=== PATIENT | female | born 1970 | race Caucasian/White ===

== ENCOUNTER 2017-06-24 12:57 | Emergency (ER) | payer OTHER ==
[2017-06-24 13:01] VITALS: BP 138/93
--- NOTE | 2017-06-24 13:08 | EDPHY ---
H & P Stated Complaint: Hit nose on wall last weekend. Con't to have reddness Time Seen by Provider: 06/24/17 13:07 HPI/ROS: HPI: This is a 47-year-old female who presents with Chief Complaint: Hit nose on wall last weekend. Con't to have reddness Location: Left side of nose Quality: Injury Duration: 6 days ago Signs and Symptoms: no fever, no nausea, no vomiting, no diarrhea, no urinary symptoms, no chest pain, no shortness of breath, no wheezing, no cough, no sore throat, no neck stiffness, no joint pain, no swollen glands, no ear pain, + rash Timing: Worsening Severity: [id number] Context: Patient presents with complaints of rash on her nose. She was in the computer [place] [employer] in turned her head and hit the wall crease with her left side of her nose. She cut it open. Garry put a Band-Aid on it. Date of injury was 06/18/2017. Approximately 3-4 days later she noticed a rash over the area of injury. Her co-worker came to work 2 days ago with a Band-Aid on her chin due to herpes simplex infection. Patient works in the ICU. No prior history of MRSA. Denies any itchiness/pain/ocular discharge. Modifying Factors: None Comment: ROS: see HPI Constitutional: no fever, no chills, no weight loss Eyes: No blurred vision Respiratory: No shortness of breath, no cough Cardiovascular: No chest pain, no palpitations Gastrointestinal: No nausea, no vomiting, no diarrhea, no hematemesis, no blood in stool Genitourinary: No dysuria, no blood in urine Extremities: No myalgias, no edema Neurologic: No weakness, no numbness Skin: No rashes, no petechiae Hematologic: No bruising, no bleeding MEDICAL/SURGICAL/SOCIAL HISTORY: Medical history: Generally healthy. Does not take any regular medications. Surgical history: Denies Social history: Works at [employer]. Family history noncontributory. CONSTITUTIONAL: Well-appearing adult white female, awake and alert, no obvious distress HEENT: Atraumatic and normocephalic. Nares patent without septal hematoma; left side of nose shows raise, mildly erythematous area 2 in area with whitish crusting. NECK: supple, no midline tenderness, flexion 45 degrees, extension 45 degrees, right and left lateral flexion 45 degrees. No meningismus. Cardiovascular: Normal S1/S2, regular rate, regular rhythm, without murmur rub or gallop. PULMONARY/CHEST: Symmetrical and nontender. no crepitus. Clear to auscultation bilaterally. Good air movement. No accessory muscle usage. ABDOMEN: Soft, nondistended, nontender, no ecchymosis. PELVIC: no pain with rocking; bilateral hips flexion 125 degrees, extension 30 degrees, with no pain internal rotation and no pain external rotation. BACK: No midline tenderness, no paraspinous spasm, deep tendon reflexes 2/2, no pain with straight leg raise, No foot drop. Achilles reflexes are equal bilaterally. Able to walk on heels and toes without difficulty. EXTREMITIES: 2/2 pulses, strength 5/5, DIP/PIP/MCP flexion/extension intact with good light touch sensation. no deformities, no clubbing, no cyanosis or edema. NEUROLOGICAL: no focal neuro deficits. GCS 15. Light touch sensation intact. SKIN: Warm and dry, no erythema. no rash. Good capillary refill. Source: Patient Exam Limitations: No limitations - Personal History LMP (Females 10-55): Post Menopausal Current Tetanus/Diphtheria Vaccine: Yes Current Tetanus Diphtheria and Acellular Pertussis (TDAP): Yes - Medical/Surgical History Hx Asthma: No Hx Chronic Respiratory Disease: No Hx Diabetes: No Hx Cardiac Disease: No Hx Renal Disease: No Hx Cirrhosis: No Hx Alcoholism: No Hx HIV/AIDS: No Hx Splenectomy or Spleen Trauma: No Other PMH: Denies - Social History Smoking Status: Never smoked Constitutional: Initial Vital Signs Temperature (C) 36.6 C 06/24/17 12:59 Heart Rate 77 06/24/17 12:59 Respiratory Rate 16 06/24/17 12:59 Blood Pressure 138/93 H 06/24/17 12:59 O2 Sat (%) 95 06/24/17 12:59 O2 Delivery Mode Room Air Allergies/Adverse Reactions: No Known Allergies Allergy (Unverified 06/24/17 12:59) Home Medications: Medication Instructions Recorded Acyclovir [Zovirax] 800 mg PO 5XD #35 tab 06/24/17 Mupirocin 2% [Bactroban 2%] 1 applic TP BID 7 Days #22 oint 06/24/17 Medical Decision Making ED Course/Re-evaluation: No signs of neurovascular compromise/tenting of skin/compartment syndrome/ extremities and joints examined above and below area of concern and are neurovascularly intact/nasal fracture/facial cellulitis. Due to patient's occupation and risk for MRSA and exposure to herpes simplex virus; will treat for both. Spoke with occupational health nurse on the phone. Covered with clean sterile dressing sent to occupational health. This patient was seen under the supervision of my secondary supervising physician. I evaluated care for this patient independently. Differential Diagnosis: Differential diagnosis includes but is not limited to dermatitis, herpes simplex infection, MRSA infection, cellulitis. Departure - Departure Disposition: Home, Routine, Self-Care Clinical Impression: Facial rash Condition: Good Instructions: Dermatitis (ED) Additional Instructions: Please keep rash covered until fully healed. Start treatment and do not return to work until under treatment for 48 hr. Please walk over to occupational health with paperwork to discuss your case further. Return to the ER immediately if you experience redness, red streaks, have fevers /chills, flu like symptoms, limited range of motion, or any other symptoms that concern you. Referrals: PCP Not In,Dictionary [Medical Doctor] - As per Instructions Prescriptions: Acyclovir [Zovirax] 800 mg PO 5XD #35 tab Mupirocin 2% [Bactroban 2%] 1 applic TP BID 7 Days #22 oint
== END 2017-06-24 13:38 | disposition home or self-care (01) ==
DX: R21 Rash and other nonspecific skin eruption (principal)

== ENCOUNTER → 2017-09-15 | Outpatient (CLI) | payer OTHER ==
[~2017-09-15] MED LIST: IOPAMIDOL (ISOVUE 370) 100 ML BTL IV ONE
== END ==
LOC: FIMAGING 08:20
PROVIDERS: ATTEND Internal Medicine Interventional Cardiology
DX: I44.7 Left bundle-branch block, unspecified (principal); S29.9XXA Unspecified injury of thorax, initial encounter; R42 Dizziness and giddiness
CPT/HCPCS: Q9967